=== PATIENT | male | born 1935 | race Caucasian/White ===

== ENCOUNTER 2017-04-17 09:55 | Inpatient (IN) | payer MEDICARE, BC ==
[~2017-04-17] VITALS: Ht 172.7 cm; Wt 73.6 kg
[~2017-04-17 09:55] MED LIST: AMANTADINE100 M1 PO; AMLODIPINE5 MG PO; ASPIRIN81 MG PO; CARDURA4 MG PO; DORZOLAMIDE2 % OU; DOXAZOSIN4 MG PO; EYE DROP OU; FLAGYL500 MG PO; HYTRIN1 M1 PO; HYTRIN5 MG/CAP PO; IRON45 MG PO; LATANOPROST0.005 % OU; LIPITOR40 M1 PO; OXYCOD/APAP1 TA4 PO; PROSTATE SR PO; RAPAFLO8 MG PO; SURFAK240 MG/CAP PO; ZPAK PO
[2017-04-18] VITALS (8 sets, daily range): BP systolic 118–174; BP diastolic 60–107
--- NOTE | 2017-04-18 13:45 | NUR ---
PT ARRIVED FROM OR IN BED AT 1300. INQUIRING ABOUT HIS . IV SITE IS FREE FROM REDNESS OR EDEMA.
--- NOTE | 2017-04-18 14:00 | NUR ---
ASSESSMENT IS COMPLTED: IV SITE IS FREE FROM REDNESS OR EDEMA. BP FLUCTUATES.. NO DISTRESS NOTED. CALLED FAMILY AND CHECKED ON HER , SHE IS ON HER WAY BACK SPOKE TO THE . CONTINUE TO OBSERVE AND MONITOR.
--- NOTE | 2017-04-18 15:36 | NUR ---
PT WAS STRAIGHT CATHED FOR URINE DUE TO UNABLE TO VOID. HAD 300 OF CLEAR YELLOW URINE PT TOLERATED WELL. WHEN BLADDER SCANNED HAD 629CC AND ALSO ANOTHER AREA WAS SHOWING 471CC
--- NOTE | 2017-04-18 16:00 | NUR ---
PT WAS ASSISTED ON THE SIDE OF THE BED TO ATTEMPT TO VOID PRIOR TO STRAIGHT CATH, ALSO ASSISTED WITH WALKER TO STAND ONLY,WITH 2 PERSON ASSIST. TOLERATED WELL. AT 1645 RECEIVED A CALL FROM PHYSICAL THERAPY WILL EVALUATE PT TOMORROW. INFORMED PT.
--- NOTE | 2017-04-18 19:10 | NUR ---
REPORT RECEIVED FROM PABLO CORRALES;PT RESTING IN SEMI FOWLERS POSITION;INTRODUCED SELF TO PT AND POC DISCUSSED;PT VOICES NO NEEDS AT THIS TIME;CALL LIGHT IN REACH;WILL CONTINUE TO MONITOR
--- NOTE | 2017-04-18 21:00 | NUR ---
PT RESTING IN SEMI FOWLERS POSITION WITH SPOUSE AT BEDSIDE;A&O X3;ASSESSMENT COMPLETED;PT VOICES NO COMPLAINTS OF PAIN OR DISCOMFORTS;PAIN SCALE AND REPORTING EDUCATED;RESPIRATIONS EVEN AND UNLABORED ON RA,CLEAR LUNG SOUNDS NOTED;I.S. AT BEDSIDE WITH GOAL SET TO 2000;PT EDUCATED ON USING 10X PER HOUR WHILE AWAKE;ABDOMEN DISTENDED,SOFT;DRESSING TO LEFT KNEE CDI;ICE PACK APPLIED;CAP REFILL LESS THAN 3 SECONDS;STRONG PEDAL PULSES;SCD TO RIGHT LEG;#20G TO RIGHT FOREARM INFUSING LR @ 100ML/HR,SITE APPEARS HEALTHY;URINAL AT BEDSIDE;PT HAVING DIFFICULTY VOIDING;RE-EDUCATED PT ON ORDERS TO BLADDER SCAN AND POSSIBLE STRAIGHT CATH,PT VERBALIZES UNDERSTANDING;PO FLUIDS ENCOURAGED;COT,BLANKETS AND PILLOWS PROVIDED FOR SPOUSE;SAFETY PRECAUTIONS REINFORCED WITH CALL LIGHT IN REACH;WILL CONTINUE TO MONITOR
--- NOTE | 2017-04-18 22:00 | NUR ---
PT BLADDER SCANNED AND 375ML REPORTED,PT REFUSES STRAIGHT CATH
[2017-04-19 00:50] VITALS: BP 142/80
--- NOTE | 2017-04-19 00:50 | NUR ---
PT AWAKE,RESTING IN BED WITH SPOUSE AT BEDSIDE;URINAL EMPTIED 100CC OF DARK YELLOW URINE;PT REFUSES BLADDER SCAN;IV FLUIDS INFUSING WELL TO RIGHT FOREARM;PT VOICES NO COMPLAINTS OF PAIN TO HIS LEFT KNEE;CALL LIGHT IN REACH;WILL CONTINUE TO MONITOR
--- NOTE | 2017-04-19 02:55 | NUR ---
PT RESTING IN BED;PT STATES "I CANT SLEEP";INFORMED PT THAT IT IS TOO LATE TO REQUEST A SLEEPING PILL;PT STATES "THEN CAN I HAVE A PAIN PILL?MY KNEE HURTS";PT RATES LEFT KNEE PAIN 6/10 ON THE PAIN SCALE;PT REQUESTS OXYCODONE "BECAUSE THATS THE ONE I LIKE";PT MEDICATED WITH PRN PERCOCET 10/325MG 1 COMBO PO;WILL CONTINUE TO MONITOR FOR EFFECTIVENESS
[2017-04-19 04:40] VITALS: BP 173/84
--- NOTE | 2017-04-19 04:40 | NUR ---
PT RESTING IN BED WITH SPOUSE AT BEDSIDE;250CC OF YELLOW URINE EMPTIED FROM URINAL;IV FLUIDS INFUSING WELL TO RIGHT FOREARM;PT REPORTS A DECREASE IN PAIN, NOW 4/10 ON THE PAIN SCALE BUT COMPLAINS OF NAUSEA;PT TO BE MEDICATED WITH ZOFRAN 4MG IVP;SCD IN PLACE;PT DENIES ANY OTHER NEEDS AT THIS TIME;FALL PRECAUTIONS IN PLACE WITH CALL LIGHT IN REACH;WILL CONTINUE TO MONITOR
[2017-04-19 05:54] LABS: ANION GAP 12 (6-22 (CALC)); BUN 18 mg/dL (8-23); BUN/CREATININE RATIO 21 (12-20 (CALC)); CARBON DIOXIDE 24 mmol/l (22-30); CHLORIDE 105 mmol/l (95-108); CREATININE 0.8 mg/dL (0.7-1.3); GFR > 60 ML/MIN (>=60 (CALC)); GFR FOR AFR.AMER. > 60 ML/MIN (>=60 (CALC)); MAGNESIUM 1.6 mg/dL (1.6-2.3); POTASSIUM 3.9 mmol/l (3.5-5.1); SODIUM 137 mmol/l (137-146)
[2017-04-19 05:58] LABS: HEMATOCRIT 32.2 % (39.0-50.0); HEMOGLOBIN 10.9 g/dl (14.0-18.0); IMMATURE GRANULOCYTES 0.3 % (0.0-1.0); MEAN CELL VOLUME 87.5 fL CALC (80.0-100.0); MEAN CORPUSCULAR HGB 29.6 pG CALC (26.0-32.0); MEAN CORPUSCULAR HGB CONC 33.9 g/L CALC (32.0-36.0); NEUT# 5.87 thou/uL (1.82-7.42); RED BLOOD COUNT 3.68 mill/uL (4.70-6.10); RED CELL DISTRI WIDTH 13.5 % (11.5-15.5)
--- NOTE | 2017-04-19 07:30 | NUR ---
PT CALL THIS NURSE TO THE ROOM C/O UNABLE TO URINATE; STATES, "I FEEL LIKE I AM ABOUT TO BUST." BLADDER SCAN SHOWED 678 ML OF URINE; USING STERILE TECHNIQUE 16 FR VAUGHAN INSERTED USING STERILE TECHNIQUE, IMMEDIATE RETURN OF 600 ML OF BLOOD TINGE URINE; CATH STRAP IN PLACE; IVF INFUSING WITHOUT DIFFICULTY; DRSG TO LEFT KNEE, CDI; SCD TO RLE IN PLACE; CALL JAMES WITHIN REACH; WILL CONTINUE TO MONITOR.
[2017-04-19 08:10] VITALS: BP 134/78
--- NOTE | 2017-04-19 11:59 | NUR ---
PHYSICAL THERAPY IN WITH PT
--- NOTE | 2017-04-19 13:30 | NUR ---
PHYSICAL THERAPY IN WITH PT; PT ASSSITED BACK TO BED; CALL JAMES WITHIN REACH; SPOUSE IN ROOM; WILL CONTINUE TO MONITOR.
--- NOTE | 2017-04-19 13:52 | NUR ---
PM. PATIENT ABLE TO TOLERATE 90 MINUTES IN CHAIR AND FOLLOWED INSTRUCTIONS FOR ANKLE PUMPS AND QUAD SETS EVERY 15 MIN. HE WAS SEEN FOR EX AND GT. HE AMBULATED FOR 20 STEPS WITH CONTINUAL VERBAL CUING, WITH MOD ASSIST AND THE ROLLING WALKER. BALANCE IS STILL PRECARIOUS WITH A TENDENCY TO LOSE HIS BALANCE RETROGRADE. MOVEMENTS REMAIN JERKY BUT WITH LESS TREMBLING. HE WOULD OCCASIONALLY RAISE THE LEFT LEG TO ADVANCE IT AND BE UNABLE TO. HE TOLERATED THE TREATMENT WELL AND WAS POSITIONED COMFORTABLY IN THE BED WITH THE CALL LIGHT AND TRAY TABLE WITHIN REACH. HE IS INSTRUCTED TO WORK AT THE QUAD SETS AND TO CONSCIOUSLY TRY TO EXTEND THE LEFT LEG.
--- NOTE | 2017-04-19 14:12 | NUR ---
DR. BURK IN TO SEE PT; PLAN OF CARE DISCUSSED
[2017-04-19 15:02] VITALS: BP 146/66
--- NOTE | 2017-04-19 16:30 | NUR ---
PT MEDICATED FOR C/O LEFT KNEE PAIN 12/17; SPOUSE IN ROOM; CALL JAMES WITHIN REACH; WILL CONTINUE TO MONITOR.
[2017-04-19 18:45] VITALS: BP 122/76
--- NOTE | 2017-04-19 19:15 | NUR ---
REPORT RECEIVED FROM JOHANNA CARRILLO;PT APPEARS TO BE SLEEPING IN SEMI FOWLERS POSITION;RESPIRATIONS EVEN AND UNLABORED ON RA;NO S/S OF DISTRESS NOTED;FALL PRECAUTIONS IN PLACE;WILL CONTINUE TO MONITOR
--- NOTE | 2017-04-19 21:20 | NUR ---
PT SLEEPING IN BED,WAKES TO VERBAL STIMULI;A&O X3;ASSESSMENT COMPLETED;PT VOICES NO CONCERNS OF PAIN;PT IS POST OP DAY #1 LEFT TOTAL KNEE,DRESSING REMAINS CDI;SCD PLACED ON RIGHT LEG;I.S. AT BEDSIDE AND PT DEMONSTRATED USE,GOAL SET TO 1999;PT ENCOURAGED TO USE I.S. X10 PER HOUR WHILE AWAKE;#20G TO RIGHT FOREARM FLUSHED AND PATENT,SITE FREE FROM EDEMA;VAUGHAN CATHETER NOTED DRAINING CLEAR/YELLOW URINE;ABDOMEN SOFT ON PALPATION;CLEAR LUNG SOUNDS;PO FLUIDS ENCOURAGED;SAFETY PRECAUTIONS REINFORCED WITH CALL LIGHT IN REACH;WILL CONTINUE TO MONITOR
--- NOTE | 2017-04-19 22:20 | NUR ---
PT REPORTS LEFT KNEE PAIN RATING 7/10 ON THE PAIN SCALE AND REQUEST PAIN MEDICATION;PT MEDICATED WITH PERCOCET 10/325MG 1 COMBO,WILL MONITOR FOR EFFECTIVENESS
[2017-04-19 23:38] VITALS: BP 133/78
--- NOTE | 2017-04-19 23:40 | NUR ---
PT APPEARS TO BE SLEEPING IN SEMI FOWLERS POSITION;NO S/S OF DISTRESS NOTED;RESPIRATIONS EVEN AND UNLABORED ON RA;SCD IN PLACE;VAUGHAN CATHETER PATENT AND HANGING TO GRAVITY;FALL PRECAUTIONS IN PLACE WITH BED IN THE LOWEST POSITION;WILL CONTINUE TO MONITOR
[2017-04-20 03:50] VITALS: BP 162/83
--- NOTE | 2017-04-20 03:50 | NUR ---
PT LAYING IN BED REQUESTING PAIN AND NAUSEA MEDICATION;PT MEDICATED WITH PERCOCET 10/325MG FOR LEFT KNEE PAIN RATING 7/10 ON THE PAIN SCALE AND ZOFRAN 4MG IVP FOR NAUSEA;VS OBTAINED;VAUGHAN CATHETER EMPTIED OF 600CC OF CLEAR/YELLOW URINE;SCD IN PLACE;I.S. AT BEDSIDE;PT DENIES ANY OTHER NEEDS AT THIS TIME;CALL LIGHT IN REACH;WILL CONTINUE TO MONITOR
[2017-04-20 05:05] LABS: HEMATOCRIT 31.1 % (39.0-50.0); HEMOGLOBIN 10.5 g/dl (14.0-18.0); IMMATURE GRANULOCYTES 0.4 % (0.0-1.0); MEAN CELL VOLUME 87.6 fL CALC (80.0-100.0); MEAN CORPUSCULAR HGB 29.6 pG CALC (26.0-32.0); MEAN CORPUSCULAR HGB CONC 33.8 g/L CALC (32.0-36.0); NEUT# 5.08 thou/uL (1.82-7.42); RED BLOOD COUNT 3.55 mill/uL (4.70-6.10); RED CELL DISTRI WIDTH 13.6 % (11.5-15.5)
[2017-04-20 08:13] VITALS: BP 132/58
--- NOTE | 2017-04-20 11:36 | NUR ---
PHYSICAL THERAPY IN WITH PT;
--- NOTE | 2017-04-20 12:42 | NUR ---
11:30-PATIENT SEEN FOR GAIT TRAINING AND EXERCISES. HE IS ALERT AND COOP, AND STATES HE SLEPT WELL LAST NIGHT. VAUGHAN STILL DRAINING. THERAPIST NOTED DECREASED ACTIVE DORSIFLEXION AND EVERSION RIGHT ANKLE TODAY. PATIENT STATES IT COMES AND GOES AND HE HAS NOTICED AT HOME THAT IT IS DIFFICULT TO DON SHOES AND SOCKS ON THAT FOOT. EX DONE FOR QUAD AND GLUT SETS, ACTIVE ROM LEFT LE INCLUDING HEEL SLIDES INTO FLEXION AND ABDUCTION, SAQ'S AND LAQ'S. KNEE STILL HELD IN 10-12 DEGREES OF FLEXION IN SUPINE. EIGHTY DEGREES FLEXION AVAILABLE LEFT KNEE IS SITTING. HE IS ABLE TO SLR X7 WITH EXTENSOR LAG OF 10 DEGREES. SUPINE TO SIT REQUIRED ONLY MIN ASSIST. SIT BALANCE INDEP TODAY. STAND BALANCE WITH WALKER HAS DECLINED. STOOD PATIENT 3 X'S DOING BALANCE ACTIVITIES WITH THE RW BEFORE HE WAS ABLE TO MAINTAIN HIS BALANCE WITH MIN ASSIST. POSTURE IS STOOPED. HE CAN CORRECT WITH CUING BUT MAINTAINS ONLY A FEW SECONDS. GAIT TRAINING DONE WITH A ROLLING WALKER AND MOD ASSIST OF 2 FOR BALANCE. MOVEMENTS OF LEGS REMAIN ATAXIC. HE WAS LEFT COMFORTABLE IN THE [facility] WITH THE CALL LIGHT AND HIS TRAY TABLE IN FRONT OF HIM.
--- NOTE | 2017-04-20 13:54 | NUR ---
PATIENT SEEN FOR GAIT TRAINING AND EXERCISES. IN ADDITION TO ACTIVE AND ISOMETRIC EX FOR THE LE'S IN THE CHAIR, PATIENT WAS TAUGHT TRUNK AND UE EX TO ENCOURAGE CORE MS ACTIVITY. HE SHOWED IMPROVEMENT DURING TRANSFERS AND GAIT. HE REQUIRED ONLY ONE PRACTICE STAND ATTEMPT TO REGAIN HIS BALANCE. AMBULATION WAS DONE WITH THE WALKER AND MIN ASSIST OF 2 FOR BALANCE. ENDURANCE WAS IMPROVED TO 35 STEPS. CONTINUAL VERBAL CUING IS NEEDED FOR SEQUENCING DURING GAIT, AND FOR POSTURE CORRECTION. HE IS INDEPENDANT IN SUPINE TO AND FROM SIT TRANSFERS NOW. QUAD ISOMETRICS AND SLR DONE IN SUPINE. HE APPEARED TO TOLERATE TREATMENT WELL AND WAS LEFT COMFORTABLE IN THE BED WITH THE CALL LIGHT AND TRAY TABLE IN REACH.
[2017-04-20 15:30] VITALS: BP 148/78
--- NOTE | 2017-04-20 16:51 | NUR ---
PT STATES THAT HE DOES NOT WANT HIS VAUGHAN CATHETER REMOVED AT THIS TIME; CALL JAMES WITHIN REACH; WILL CONTINUE TO MONITOR.
[2017-04-20 19:18] VITALS: BP 140/82
--- NOTE | 2017-04-20 20:00 | NUR ---
BEDSIDE REPORT RECEIVED FROM JOHANNA CARRILLO. PT SITTING UP IN BED WATCHING TV. C/O MILD PAIN TO LEFT KNEE; OSBALDO WRAP IN PLACE CDI AND SCD TO RLE. IS AT BEDSIDE PT DEMONSTRATES UNDERSTANDING. RESPIRATIONS EVEN AND UNLABORED ON ROOM AIR. NURSE ENCOURAGED PT TO DISCONTINUE VAUGHAN CATHETER; PT DECLINES AND ASKS IF IT CAN WAIT UNTIL MORNING. PLAN OF CARE DISCUSSED. PT ENCOURAGED TO VERBALZIE CONCERNS. STATES UNDERSTANDING. SAFETY MEASURES IN PLACE. CALL LIGHT WITHIN REACH.
--- NOTE | 2017-04-20 23:43 | NUR ---
PT ASLEEP AT THIS TIME WITH NO SIGNS OF DISTRESS NOTED. RESPIRATIONS EVEN AND UNLABORED ON ROOM AIR. VAUGHAN CATHETER DRAININGE MANA CLEAR URINE IN ADEQUATE AMOUNTS. PERCOCET AND ZOFRAN GIVEN AT HS WITH GOOD EFFECT; PT WAS C/O SOME QUEEZINESS. TYLENOL ALSO GIVEN AT 1950 FOR TEMPERATURE OF 101.2 WITH F/U TEMP OF 99.2. WILL CONTINUE TO MONITOR. IV SITE FLUSHES AND APPEARS HEALTHY. SAFETY MEASURES IN PLACE. CALL LIGHT WITHIN REACH.
[2017-04-20 23:45] VITALS: BP 139/75; BP 140/77
[2017-04-21 04:53] VITALS: BP 157/80
[2017-04-21 04:55] LABS: HEMOGLOBIN 10.2 g/dl (14.0-18.0); IMMATURE GRANULOCYTES 0.3 % (0.0-1.0); MEAN CELL VOLUME 87.8 fL CALC (80.0-100.0); MEAN CORPUSCULAR HGB 28.9 pG CALC (26.0-32.0); MEAN CORPUSCULAR HGB CONC 32.9 g/L CALC (32.0-36.0); NEUT# 5.65 thou/uL (1.82-7.42); RED BLOOD COUNT 3.53 mill/uL (4.70-6.10); RED CELL DISTRI WIDTH 13.9 % (11.5-15.5)
--- NOTE | 2017-04-21 05:07 | NUR ---
DRESSING TO LEFT KNEE REMOVED. INCISION APPEARS HEALTHY AND IS WELL APPROXIMATED. PT STATES THERE IS ONLY DISCOMFORT WITH MOVEMENT AND DECLINES ANY PAIN MEDICATION AT THIS TIME. ICE APPLIED FOR SWELLING. VAUGHAN ALSO REMOVED AT THIS TIME AND PT INSTRUCTED TO NOTIFY NURSE OF FIRST VOID. PT HAS NO COMPLAINTS OR REQUESTS AT THIS TIME. CALL LIGHT WITHIN REACH.
[2017-04-21 05:13] LABS: ANION GAP 14 (6-22 (CALC)); BUN 15 mg/dL (8-23); BUN/CREATININE RATIO 17 (12-20 (CALC)); CARBON DIOXIDE 24 mmol/l (22-30); CHLORIDE 106 mmol/l (95-108); CREATININE 0.9 mg/dL (0.7-1.3); GFR > 60 ML/MIN (>=60 (CALC)); GFR FOR AFR.AMER. > 60 ML/MIN (>=60 (CALC)); SODIUM 140 mmol/l (137-146)
--- NOTE | 2017-04-21 06:08 | NUR ---
PT URINATED 50ML OF BLOOD TINGED URINE. AMBULATED TO BATHROOM AND BACK TO BED WITH WALKER AND ONE PERSON ASSIST.
--- NOTE | 2017-04-21 07:00 | NUR ---
BEDSIDE REPORT RECEIVED BY JOHANNA DELEON. PT IS SITTING IN CHAIR AND DENIES NEEDS AT THIS TIME. ORIENTED BY JOHANNA GAMBOA.
--- NOTE | 2017-04-21 07:30 | NUR ---
RECEIVED REPORT FROM JOHANNA PRIETO. PT SITTING UP IN RECLINER. PT ASSESSMENT COMPLETED. A&O X3. EYES PERRLA. RESPIRATIONS EVEN AND UNLABORED. LUNGS SOUNDS CLEAR. ABDOMEN SOFT. BOWEL SOUNDS ACTIVE IN ALL QUARDANTS. PT DENIES ANY ABDOMINAL PAIN OR TENDERNESS. EDEMA IN LT LEG W/ TRACE PITTING. NO REDNESS OBSERVED. WARMTH WAS NOTED TO KNEE AND SURROUNDING TISSUE. STRONG RADIAL AND PEDAL PULSES. PT COMPLAINED OF PAIN TO LT LEG AT 5/10 BUT DID NOT WANT PAIN PILL. PT ENCOURAGED TO DRINK FLUIDS AND USE IS. CALL LIGHT PLACED WITHIN REACH. WILL CONTINUE TO MONITOR.
[2017-04-21 07:34] VITALS: BP 138/75
--- NOTE | 2017-04-21 08:00 | NUR ---
ASSESSMENT DONE AND RESP EVEN AND UNLABOR. INCISION CLEAN, DRY ON LEFT KNEE AND SCD IN PLACE. #20 RFA APPEARS HEALTHY. PT STATED THAT PAIN IS 5/10,BUT DOES NOT WANT PAIN MEDICATION AT THIS TIME. ORIENTED TO CALL LIGHT SYSTEM AND SAFETY PRECAUTIONS REINFORCED. PT VERBALIZED UNDERSTANDING. PT DENIES ANY OTHER NEEDS AT THIS TIME.
[2017-04-21 08:13] VITALS: BP 138/75
--- NOTE | 2017-04-21 10:00 | NUR ---
PT WAS SHOWERED AFTER REPEATED ATTEMPTS. PT APPEARED VERY MODEST AND ONLY ALLOWED MINIMAL ASSISTANCE. PT TOLERATED WELL. LINEN WAS CHANGED AND PT WAS ASSISTED BACK TO BED WITH WALKER. BED IN LOWEST POSITION, WHEELS LOCKED. CALL LIGHT PLACED WITHIN REACH. PT ENCOURAGED TO CALL FOR ASSISTANCE.
--- NOTE | 2017-04-21 10:44 | NUR ---
PT AMBULATING IN THE HALLWAY WITH WALKER WITH THE HELP OF PHYSICAL THERAPY.
--- NOTE | 2017-04-21 10:58 | NUR ---
PT VOIDED 200CC SINCE 7AM. BLADDER SCAN WAS COMPLETED AND 255CC OF URINE RETENTION WAS NOTED AFTER VOIDING 50CC OF CLEAR YELLOW URINE. CALL LIGHT PLACED WITHIN REACH. PT UNCOURAGED TO DRINK FLUIDS.
--- NOTE | 2017-04-21 12:03 | NUR ---
PT IS SITTING IN CHAIR EATING LUNCH AND IN ROOM.
[2017-04-21] MEDS ORDERED: MIRALAX3350 NF PO (12:45)
[2017-04-21] MEDS ORDERED: ASPIRIN EC325 MG PO (12:45)
[2017-04-21] MEDS ORDERED: COLACE100 MG PO (12:45)
[2017-04-21] MEDS ORDERED: PERCOCET 10/31 COMBO PO (12:45)
[2017-04-21] MEDS ORDERED: TAMSULOSIN HCL0.4 MG PO (12:47)
--- NOTE | 2017-04-21 12:55 | NUR ---
IV site discontinued, cath intact. No edema , no redness, voices no discomfort.
--- NOTE | 2017-04-21 14:14 | NUR ---
Patient seen this morning for gait training, gait belt and non skid socks applied. Supine to sit done independently with verbal cues for scooting to right side of bed and then advancing LE's off bed with tactile cues. Good static sitting balance is noted. Sit to stand x2 attempts with cues for UE push off from bed and CGA x1. Slightly stooped posture observed in standing with RW and PWB on left foot. Pt. ambulated 1x40 feet using RW and with CGA x1, v.c.'s for gait pattern. Pt. returned to comfortably resting in recliner with LE's elevated, pillows used for off loading heels. Call light reviewed and left within reach. Pt. content with progress made and was left without questions or concerns.
--- NOTE | 2017-04-21 14:26 | NUR ---
Discharged in stable condition via Wheelchair to [facility] with spouse and staff. All belongings sent with pt.
== END 2017-04-21 14:22 | DRG 470 ==
LOC: MS2 04-18 06:45
PROVIDERS: Internal Medicine; Nurse Practitioner Family; ADMIT Orthopaedic Surgery; ATTEND Orthopaedic Surgery
PROC: 0SRD0J9 Replacement of Left Knee Joint with Synthetic Substitute, Cemented, Open Approach (ICD-10-PCS; principal; 2017-04-18)
PROC: 0T9B70Z Drainage of Bladder with Drainage Device, Via Natural or Artificial Opening (ICD-10-PCS; 2017-04-19)
DX: M17.12 Unilateral primary osteoarthritis, left knee (principal); E78.00 Pure hypercholesterolemia, unspecified; I10 Essential (primary) hypertension; N40.1 Benign prostatic hyperplasia with lower urinary tract symptoms; R33.8 Other retention of urine; Z01.818 Encounter for other preprocedural examination; Z96.651 Presence of right artificial knee joint; Z97.2 Presence of dental prosthetic device (complete) (partial)
CPT/HCPCS: J2270

== ENCOUNTER 2017-10-19 18:45 | Inpatient (IN) | payer MEDICARE, BC ==
[~2017-10-19] VITALS: Ht 172.7 cm; Wt 69.0 kg
[~2017-10-19 18:45] MED LIST changes: +ASPIRIN EC325 MG PO; +COLACE100 MG PO; +MIRALAX3350 NF PO; +PERCOCET 10/31 COMBO PO; +TAMSULOSIN HCL0.4 MG PO
[2017-10-19 19:14] LABS: URINE BILIRUBIN - DIPSTICK NEGATIVE (NEGATIVE); URINE BLOOD DIPSTICK LARGE (NEGATIVE); URINE COLOR YELLOW; URINE GLUCOSE - DIPSTICK NEGATIVE (NEGATIVE); URINE KETONE NEGATIVE (NEGATIVE); URINE LEUK ESTERASE NEGATIVE (NEGATIVE); URINE NITRITE - DIPSTICK NEGATIVE (Negative); URINE PH 5.5 (4.5-8.0); URINE PROTEIN - DIPSTICK NEGATIVE (NEG-TRACE); URINE SPECIFIC GRAVITY 1.025; URINE UROBILINOGEN - DIPSTICK 0.2 E.U./dL (0.2)
[2017-10-19 19:14] LABS: HEMATOCRIT 38.2 % (39.0-50.0); HEMOGLOBIN 12.8 g/dl (14.0-18.0); IMMATURE GRANULOCYTES 0.3 % (0.0-5.0); MEAN CELL VOLUME 86.2 fL CALC (80.0-100.0); MEAN CORPUSCULAR HGB 28.9 pG CALC (26.0-32.0); MEAN CORPUSCULAR HGB CONC 33.5 g/L CALC (32.0-36.0); NEUT# 5.85 thou/uL (1.82-7.42); RED BLOOD COUNT 4.43 mill/uL (4.70-6.10); RED CELL DISTRI WIDTH 14.6 % (11.5-15.5)
[2017-10-19 19:26] LABS: ALBUMIN 3.8 g/dL (3.2-5.0); ALKALINE PHOSPHATASE 123 u/l (38-126); ANION GAP 16 (6-22 (CALC)); BILIRUBIN, TOTAL 0.5 mg/dL (0.0-1.4); BUN 25 mg/dL (8-23); BUN/CREATININE RATIO 27 (12-20 (CALC)); CARBON DIOXIDE 21 mmol/l (22-30); CHLORIDE 108 mmol/l (95-108); CREATININE 0.9 mg/dL (0.7-1.3); GFR > 60 ML/MIN (>=60 (CALC)); GFR FOR AFR.AMER. > 60 ML/MIN (>=60 (CALC)); SGOT/AST 36 u/l (19-48); SGPT/ALT 27 u/l (11-66); SODIUM 140 mmol/l (137-146)
[2017-10-19 19:26] LABS: URINE CLARITY CLEAR
[2017-10-19 19:39] LABS: MYOGLOBIN 113 ng/mL (0 - 121)
[2017-10-19 19:44] LABS: URINE SQUAMOUS EPITHELIAL CELL FEW EPI/hpf (0-FEW)
[2017-10-19 21:02] LABS: INFLUENZA A NONE DETECTED (NONE DETECT); INFLUENZA B NONE DETECTED (NONE DETECT)
[2017-10-19 22:30] VITALS: BP 132/59
[2017-10-20 00:10] VITALS: BP 119/65
[2017-10-20 05:27] VITALS: BP 139/73
[2017-10-20 05:39] LABS: HEMATOCRIT 34.6 % (39.0-50.0); HEMOGLOBIN 11.4 g/dl (14.0-18.0); IMMATURE GRANULOCYTES 0.3 % (0.0-5.0); MEAN CELL VOLUME 86.9 fL CALC (80.0-100.0); MEAN CORPUSCULAR HGB 28.6 pG CALC (26.0-32.0); MEAN CORPUSCULAR HGB CONC 32.9 g/L CALC (32.0-36.0); NEUT# 4.85 thou/uL (1.82-7.42); RED BLOOD COUNT 3.98 mill/uL (4.70-6.10); RED CELL DISTRI WIDTH 14.6 % (11.5-15.5)
[2017-10-20 06:06] LABS: ALKALINE PHOSPHATASE 85 u/l (38-126); ANION GAP 11 (6-22 (CALC)); BILIRUBIN, TOTAL 0.4 mg/dL (0.0-1.4); BUN 17 mg/dL (8-23); BUN/CREATININE RATIO 24 (12-20 (CALC)); CARBON DIOXIDE 25 mmol/l (22-30); CHLORIDE 109 mmol/l (95-108); CREATININE 0.7 mg/dL (0.7-1.3); GFR > 60 ML/MIN (>=60 (CALC)); GFR FOR AFR.AMER. > 60 ML/MIN (>=60 (CALC)); POTASSIUM 3.8 mmol/l (3.5-5.1); SGOT/AST 22 u/l (19-48); SGPT/ALT 27 u/l (11-66); SODIUM 141 mmol/l (137-146)
[2017-10-20 06:07] LABS: ALBUMIN 2.7 g/dL (3.2-5.0); TOTAL PROTEIN 5.3 g/dL (6.3-8.2)
[2017-10-20 07:45] VITALS: BP 156/84
[2017-10-20 08:23] VITALS: BP 156/84
[2017-10-20] MEDS ORDERED: ASPIRIN EC325 MG PO (08:43)
[2017-10-20] MEDS ORDERED: LEVAQUIN750 MG PO (08:47)
== END 2017-10-20 10:33 | disposition home or self-care (01) | DRG 194 ==
LOC: ED 18:45 → ED-I 21:35 → ED 21:50 → MS2 21:51
PROVIDERS: Emergency Medicine; ADMIT Internal Medicine Geriatric Medicine; ATTEND Internal Medicine Geriatric Medicine
DX: J18.9 Pneumonia, unspecified organism (principal); N13.8 Other obstructive and reflux uropathy; N40.1 Benign prostatic hyperplasia with lower urinary tract symptoms; R31.9 Hematuria, unspecified; J02.0 Streptococcal pharyngitis; I10 Essential (primary) hypertension; I25.10 Atherosclerotic heart disease of native coronary artery without angina pectoris; M19.90 Unspecified osteoarthritis, unspecified site; G89.29 Other chronic pain; M54.9 Dorsalgia, unspecified; Z96.651 Presence of right artificial knee joint

== ENCOUNTER → 2018-04-27 | Outpatient (REF) | payer MEDICARE, BC ==
[~2018-04-27] MED LIST changes: +LEVAQUIN750 MG PO
== END | disposition home or self-care (01) ==
LOC: DI 16:06
PROVIDERS: ATTEND Orthopaedic Surgery
DX: M25.562 Pain in left knee (principal); M25.561 Pain in right knee; Z96.653 Presence of artificial knee joint, bilateral